=== PATIENT | female | born 1960 | race Native Hawaiian/Other Pacific Islander ===

== ENCOUNTER 2017-06-26 08:49 | Outpatient (CLI) | payer MEDICARE, OTHER ==
--- NOTE | 2017-06-26 09:30 | XRay Report ---
XRAY RIGHT KNEE 3 THREE VIEWS: 06/26/17 08:49:00 CLINICAL: Pain FINDINGS: Healed proximal tibia fracture with a plate and screws. A single screw in the lateral tibial condyle. No fracture lines. Vacuum phenomenon in the medial meniscus. 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 No joint effusion. No fracture or dislocation. Normal soft tissues. IMPRESSION: Healed proximal tibia fracture with normal appearance of the hardware.Minimal arthritis.
== END 2017-06-26 08:50 | disposition home or self-care (01) ==
LOC: SPVIMAG 08:49
PROVIDERS: ATTEND Orthopaedic Surgery Sports Medicine
DX: S82.101D Unspecified fracture of upper end of right tibia, subsequent encounter for closed fracture with routine healing (principal); M17.11 Unilateral primary osteoarthritis, right knee; X58.XXXD Exposure to other specified factors, subsequent encounter